=== PATIENT | female | born 1945 | race Caucasian/White ===

== ENCOUNTER 2016-12-28 16:57 | Emergency (ER) | payer SELFPAY ==
[~2016-12-28] VITALS: Ht 160 cm; Wt 60.8 kg
[2016-12-28] MEDS ORDERED: OMEGA-3-ACID ETH1 GM PO (17:06)
[2016-12-28] MEDS ORDERED: LISINOPRIL10 M1 PO (17:06)
[2016-12-28] MEDS ORDERED: OMEPRAZOLE D/R20 MG PO (17:06)
[2016-12-28 17:15] LABS: BASO % 0.4 % (0.0-1.0); EOS # 0.2 10*3/uL (0.0-0.4); EOS % 1.9 % (1.0-4.0); HEMATOCRIT 36.3 % (37.0-47.0); HEMOGLOBIN 12.2 g/dl (12.0-16.0); LYMPH # 2.8 10*3/uL (1.3-4.4); LYMPH % 34.5 % (27.0-41.0); MEAN CELL VOLUME 93.8 fl (81.0-99.0); MEAN CORPUSCULAR HGB 31.5 pg (27.0-31.0); MEAN CORPUSCULAR HGB CONC 33.6 g/dl (33.0-37.0); MEAN PLATELET VOLUME 10.3 fl (9.6-12.3); MONO # 0.6 10*3/uL (0.1-1.0); NEUT # 4.4 10*3/uL (2.3-7.9); NEUT % 54.8 % (47.0-73.0); PLATELET COUNT AUTOMATED 216 10*3/uL (130-400); RED BLOOD COUNT 3.87 10*6/uL (4.10-5.10); RED CELL DISTRI WIDTH 12.8 % (0-14.5)
[2016-12-28 17:31] LABS: ALBUMIN 3.6 gm/dl (3.1-4.5); BILIRUBIN, TOTAL 0.3 mg/dl (0.2-1.0); POTASSIUM 4.4 mmol/L (3.5-5.1); TOTAL PROTEIN 6.2 gm/dL (6.4-8.2); TROPONIN I 0.018 ng/ml (<0.045)
== END 2016-12-28 17:48 | disposition home or self-care (01) ==
LOC: ED 16:57
PROVIDERS: Emergency Medicine
DX: R55 Syncope and collapse (principal); Z79.899 Other long term (current) drug therapy; Z88.2 Allergy status to sulfonamides

== ENCOUNTER 2018-12-22 18:22 | Emergency (ER) | payer BC, MEDICARE ==
[~2018-12-22] VITALS: Ht 152.4 cm; Wt 57.2 kg
[~2018-12-22 18:22] MED LIST: LISINOPRIL10 M1 PO; OMEGA-3-ACID ETH1 GM PO; OMEPRAZOLE D/R20 MG PO
== END 2018-12-22 19:36 | disposition home or self-care (01) ==
LOC: ED 18:22
DX: S40.021A Contusion of right upper arm, initial encounter (principal); Z88.2 Allergy status to sulfonamides; Z88.6 Allergy status to analgesic agent; Z79.899 Other long term (current) drug therapy; X58.XXXA Exposure to other specified factors, initial encounter; Y93.89 Activity, other specified; Y92.89 Other specified places as the place of occurrence of the external cause; Y99.8 Other external cause status

== ENCOUNTER → 2019-12-15 | Day surgery (SDC) | payer BC, MEDICARE ==
[~2019-12-15] VITALS: Ht 149.8 cm; Wt 54.0 kg
[~2019-12-15] MED LIST changes: +ASPIRIN CHEWABL81 MG PO; +MAGNESIUM200 MG PO; +MELOXICAM15 MG PO; +OCUFLOX 0.3% 5 M5 ML OPH; +OMEGA 3 FISH O1 EACH PO; -OMEPRAZOLE D/R20 MG PO; +OMEPRAZOLE20 M2 PO; +PREDNISOLONE ACE5 M5 OP; +VITAMIN D325 MCG PO; +ZINC50 M3 PO; +[UNRECOGNIZED DRUG - OTHER] PO
[2019-12-15 09:20] VITALS: BP 142/68
[2019-12-15 10:59] VITALS: BP 144/97
[2019-12-15 11:14] VITALS: BP 145/69
[2019-12-15 11:28] VITALS: BP 144/70
== END | disposition home or self-care (01) ==
LOC: SDC 12-13 15:30
DX: H25.812 Combined forms of age-related cataract, left eye (principal); I10 Essential (primary) hypertension; Z88.8 Allergy status to other drugs, medicaments and biological substances; Z79.899 Other long term (current) drug therapy; Z87.891 Personal history of nicotine dependence; Z98.890 Other specified postprocedural states

== ENCOUNTER → 2023-03-12 | Day surgery (SDC) | payer BC, MEDICARE ==
[~2023-03-12] VITALS: Ht 149.8 cm; Wt 54.4 kg
[~2023-03-12] MED LIST changes: +CYMBALTA30 MG PO; +GEMTESA75 MG PO; +NIFEDIPINE ER30 M1 PO
[2023-03-12 12:10] VITALS: BP 161/57
[2023-03-12 13:15] VITALS: BP 125/48
[2023-03-12 13:30] VITALS: BP 145/69
[2023-03-12 13:45] VITALS: BP 102/55
== END | disposition home or self-care (01) ==
LOC: SDC 03-10 08:45
PROVIDERS: ATTEND Ophthalmology
DX: H25.811 Combined forms of age-related cataract, right eye (principal); K21.9 Gastro-esophageal reflux disease without esophagitis; I10 Essential (primary) hypertension; Z90.710 Acquired absence of both cervix and uterus; Z98.890 Other specified postprocedural states

== ENCOUNTER 2025-08-21 09:18 | Emergency (ER) | payer MEDICARE ==
[~2025-08-21] VITALS: Ht 149.8 cm; Wt 54.4 kg
[2025-08-21] MEDS ORDERED: CLINDAMYCIN HC300 MG PO (09:42)
[2025-08-21] MEDS ORDERED: PREDNISONE50 MG PO (09:42)
[2025-08-21] MEDS ORDERED: CLINDAMYCIN HCL 300 MG CAPSULE PO ONE (09:45)
[2025-08-21] MEDS ORDERED: Dexamethasone Sodium Phospha 20 MG/5 ML VIAL IM ONE (09:45)
== END 2025-08-21 09:46 | disposition home or self-care (01) ==
LOC: ED 09:18
DX: S40.861A Insect bite (nonvenomous) of right upper arm, initial encounter (principal); L03.113 Cellulitis of right upper limb; I10 Essential (primary) hypertension; Z98.890 Other specified postprocedural states; K21.9 Gastro-esophageal reflux disease without esophagitis; Z88.2 Allergy status to sulfonamides; Z88.8 Allergy status to other drugs, medicaments and biological substances; Z88.5 Allergy status to narcotic agent; Z90.710 Acquired absence of both cervix and uterus; W57.XXXA Bitten or stung by nonvenomous insect and other nonvenomous arthropods, initial encounter; Y93.89 Activity, other specified; Y92.89 Other specified places as the place of occurrence of the external cause; Y99.8 Other external cause status